=== PATIENT | female | born 1955 | race Two or more races ===

== ENCOUNTER 2016-09-10 09:24 | Emergency (ER) | payer MEDICAID ==
[~2016-09-10] VITALS: Ht 160 cm; Wt 92.5 kg
[2016-09-10 09:24] VITALS: BP 141/97
--- NOTE | 2016-09-10 09:42 | NUR ---
URINE SAMPLE COLLECTED SENT TO LAB
[2016-09-10 09:45] LABS: APPEARANCE,URINE Cloudy (CLEAR); BILIRUBIN,URINE Negative (NEGATIVE); BLOOD, URINE Large Ery/uL (NEGATIVE); COLOR,URINE Yellow (YELLOW); KETONES,URINE Negative (NEGATIVE); LEUKOCYTE ESTERASE ,URINE Large (NEGATIVE); NITRITE, URINE Negative (NEGATIVE); PROTEIN,URINE 100 mg/dl (NEGATIVE); UGLUCOSE Negative (NEGATIVE); UROBILINOGEN,URINE 0.2 EU/dL (0.2)
[2016-09-10 10:37] LABS: BACTERIA,URINE Moderate /HPF (None Seen); RBC,URINE 81-100 /HPF (0-2); WBC,URINE 51-80 /HPF (0-3)
[2016-09-10 10:38] LABS: SQUAMOUS EPITHELIAL CELL,UR Few /HPF (None Seen)
== END 2016-09-10 10:12 | disposition home or self-care (01) ==
LOC: ER 09:28
DX: N39.0 Urinary tract infection, site not specified (principal); E11.9 Type 2 diabetes mellitus without complications; I10 Essential (primary) hypertension; R31.29 Other microscopic hematuria; Z87.440 Personal history of urinary (tract) infections
CPT/HCPCS: 81000-TC; 87086-TC; 87186-TC; A4606; Z7610

== ENCOUNTER 2016-11-03 04:48 | Emergency (ER) | payer MEDICAID, OTHER ==
[~2016-11-03] VITALS: Ht 160 cm; Wt 65.8 kg
[2016-11-03 04:48] VITALS: BP 161/84
[2016-11-03 05:10] LABS: APPEARANCE,URINE CLOUDY (CLEAR); BILIRUBIN,URINE NEGATIVE (NEGATIVE); BLOOD, URINE 3+ Ery/uL (NEGATIVE); COLOR,URINE YELLOW (YELLOW); KETONES,URINE NEGATIVE (NEGATIVE); LEUKOCYTE ESTERASE ,URINE 3+ (NEGATIVE); NITRITE, URINE NEGATIVE (NEGATIVE); PROTEIN,URINE 2+ mg/dl (NEGATIVE); UGLUCOSE NEGATIVE (NEGATIVE); UROBILINOGEN,URINE 0.2 EU/dL (0.2)
[2016-11-03 05:20] LABS: BACTERIA,URINE Moderate /HPF (None Seen); RBC,URINE 81-100 /HPF (0-2); SQUAMOUS EPITHELIAL CELL,UR Rare /HPF (None Seen); WBC,URINE TOO NUMEROUS TO COUN /HPF (0-3)
== END 2016-11-03 05:48 | disposition home or self-care (01) ==
LOC: ER 04:49
DX: N30.90 Cystitis, unspecified without hematuria (principal); E11.9 Type 2 diabetes mellitus without complications; I10 Essential (primary) hypertension
CPT/HCPCS: 81000-TC; 87086-TC; A4606; Z7610

== ENCOUNTER 2017-02-08 17:43 | Emergency (ER) | payer MEDICAID ==
[~2017-02-08] VITALS: Ht 160 cm; Wt 90.7 kg
[2017-02-08 18:43] VITALS: BP 150/83
[2017-02-08] MEDS ORDERED: ACETAMINOPHEN ES 500 MG TABLET ONE (19:16)
[2017-02-08] MEDS ORDERED: ACETAMINOPHEN ES 500 MG TABLET PO ONE (19:30)
== END 2017-02-08 19:25 | disposition home or self-care (01) ==
LOC: ER 17:49
DX: M54.31 Sciatica, right side (principal); I10 Essential (primary) hypertension; E11.9 Type 2 diabetes mellitus without complications; Z98.890 Other specified postprocedural states
CPT/HCPCS: 99282; A4606; Z7610